=== PATIENT | female | born 1955 | race Caucasian/White ===

== ENCOUNTER 2016-06-10 15:17 | Inpatient (IN) | payer OTHER ==
[~2016-06-10] VITALS: Ht 165.1 cm; Wt 85.1 kg
[2016-06-10] MEDS ORDERED: ASPIRIN 81 MG CHEW TABLET PO ONE (15:30)
[2016-06-10] MEDS ORDERED: PREM0.9T PO (15:32)
[2016-06-10] MEDS ORDERED: PROG100C PO (15:32)
[2016-06-10 15:57] LABS: BASO # 0.1 K/mm3 (0.0-0.2); BASO % 0.9 % (0.0-1.0); EOS # 0.2 K/mm3 (0.0-0.50); EOS % 2.8 % (0.0-3.0); LARGE UNSTAINED CELL # 0.1 K/mm3 (0.0-0.4); LARGE UNSTAINED CELL % 1.8 % (0.0-4.0); LYMPH # 1.7 K/mm3 (1.5-4.5); LYMPH % 19.5 % (24.0-44.0); MEAN CORPUSCULAR HEMOGLOBIN 31.8 pg (27.0-33.0); MEAN CORPUSCULAR HGB CONC 34.5 g/dl (32.0-36.5); MEAN CORPUSCULAR VOLUME 92.1 fl (80.0-96.0); MONO # 0.4 K/mm3 (0.0-0.8); MONO % 4.6 % (0.0-5.0); NEUTROPHILS # 5.5 K/mm3 (1.8-7.7); NEUTROPHILS % 70.4 % (36.0-66.0); PLATELET COUNT, AUTOMATED 283 k/mm3 (150-450); RED CELL DISTRIBUTION WIDTH 12.7 % (11.5-14.5); WHITE BLOOD COUNT 7.8 K/mm3 (4.0-10.0)
[2016-06-10 16:20] LABS: ALBUMIN 3.6 GM/DL (3.2-5.2); ALBUMIN/GLOBULIN RATIO 1.03 (1.00-1.93); BILIRUBIN,DIRECT 0.1 MG/DL (0.0-0.2); BILIRUBIN,TOTAL 0.5 MG/DL (0.2-1.0); CALCIUM LEVEL 8.2 MG/DL (8.5-10.1); CREATININE FOR GFR 1.31 MG/DL (0.55-1.02); GLOMERULAR FILTRATION RATE 44.2 (>51); POTASSIUM SERUM 3.4 MEQ/L (3.5-5.1); TOTAL PROTEIN 7.1 GM/DL (6.4-8.2)
[2016-06-10] MEDS ORDERED: HEPARIN DRIP 25,000 UNITS in APPROPRIATE DILUENT 1 EA IV SCH (20:43)
[2016-06-10] MEDS ORDERED: HEPARIN SOD (PORCINE) 5000 UNITS/ML VIAL IV PRN (20:45)
[2016-06-10] MEDS ORDERED: ACETAMINOPHEN TAB 650MG DOSE (2X325MG) PO PRN (20:45)
[2016-06-10] MEDS ORDERED: POTASSIUM CHLORIDE 10 MEQ SR TABLET PO ONE (20:45)
[2016-06-10] MEDS ORDERED: SIMVASTATIN 20 MG TAB PO SCH (21:00)
[2016-06-10] MEDS ORDERED: HEPARIN SOD (PORCINE) 5000 UNITS/ML VIAL IV ONE (22:00)
[2016-06-10 22:59] VITALS: BP 163/106
[2016-06-10 23:05] VITALS: BP 135/85
[2016-06-10] MEDS: METOPROLOL TART 12.5 MG PER 1/2 TAB PO SCH (23:45)
[2016-06-11] VITALS (8 sets, daily range): BP systolic 130–168; BP diastolic 75–103
--- NOTE | 2016-06-11 02:43 | HPE ---
DATE OF ADMISSION: 06/10/2016 REASON FOR ADMISSION: Chest pain, tachycardia. HISTORY OF PRESENT ILLNESS: The patient is a 61-year-old female with no past medical history, presented to the emergency room with chest pain and palpitations. The patient stated she was on her treadmill, had just completed a 30-minute workout then she started having some chest pain, described as pressure mid chest, non-radiating, associated with nausea and dizziness, but no shortness of breath or diaphoresis. The patient stated that she checked her heart rate and she found it to be elevated, so she presented to the emergency room. She received four doses of 81 mg aspirin. First set of cardiac enzymes was negative, but repeat went up to 0.3. EKG initially showed some T-wave inversions. Repeat EKG was normal. By the time I saw the patient, she did not have any chest pain, stated she had some discomfort, but not like it was. She denied any other symptoms. She stated she had no prior history of any similar events in the past. REVIEW OF SYSTEMS: 12-point review of systems was obtained all of which was negative except for those mentioned above. PAST MEDICAL HISTORY: None. PAST SURGICAL HISTORY: Status post cholecystectomy. ALLERGIES: None. HOME MEDICATIONS: Include progesterone and Premarin she has been on for 4 years. SOCIAL HISTORY: The patient denies any tobacco use, alcohol use. Lives at home with her . FAMILY HISTORY: The patient has no heart disease in her family. Father had transient ischemic attack (TIA). PHYSICAL FINDINGS: Vital signs: On admission temperature 98.3, pulse 78, respiratory rate 20. Blood pressure is 163/106, pulse oximetry 97% on room air. HEENT: Pupils equal, round, reactive to light and accommodation. Neck: Supple. No jugular venous distention (JVD). Lungs: Clear to auscultation (CTA) bilaterally. Cardiac: Regular rate and rhythm. Abdomen: Soft, nontender, nondistended. Extremities: No clubbing, cyanosis or edema. LABORATORY FINDINGS: Sodium 137, potassium 3.4, chloride 100, BUN 15, creatinine 1.3, fasting glucose 203, BUN . Troponin first set was negative, second set 0.31, BNP 20.2. WBC 7.8, hemoglobin 14, hematocrit 40.5, platelet count 283. ASSESSMENT AND PLAN: 1. Chest pain. Unknown etiology at this time. Cannot rule out heart disease. Dr. Lopez was consulted from the emergency room. He stated the patient should be monitored on telemetry. He felt the elevation in troponin was likely due to tachycardia since the patient's heart rate was in the 170s upon initial presentation and it had converted on its own back to regular rate. We will continue to monitor the patient on telemetry. Continue to cycle cardiac enzymes. The patient received aspirin in the emergency room. We will resume aspirin daily. Will start the patient on heparin drip. Will start patient on beta sohail metoprolol, as well as simvastatin. We will order a lipid panel and thyroid-stimulating hormone (TSH) level. Repeat EKG in the morning. The patient may need a further cardiac workup, consult Dr. Lopez to see the patient. Thrombolysis in myocardial infarct (AMPARO) score was calculated to be 1-2. 2. Tachycardia. Unknown cause at this time. The patient had converted to regular rate and rhythm on her own. Continue to monitor the patient on telemetry. 3. Elevated troponins. 4. Acute on chronic kidney disease. Baseline creatinine is 0.9, currently 1.3, unknown etiology. We will repeat blood work in the morning. 5. Deep venous thrombosis (DVT) prophylaxis. The patient will be started on heparin drip.
[2016-06-11 07:28] LABS: MEAN CORPUSCULAR HEMOGLOBIN 32.9 pg (27.0-33.0); MEAN CORPUSCULAR HGB CONC 35.1 g/dl (32.0-36.5); MEAN CORPUSCULAR VOLUME 93.7 fl (80.0-96.0); RED CELL DISTRIBUTION WIDTH 12.6 % (11.5-14.5); WHITE BLOOD COUNT 5.8 K/mm3 (4.0-10.0)
[2016-06-11 07:41] LABS: ALBUMIN 3.4 GM/DL (3.2-5.2); ALBUMIN/GLOBULIN RATIO 0.89 (1.00-1.93); ALKALINE PHOSPHATASE 71 U/L (45-117); ALT/SGPT 40 U/L (12-78); ANION GAP 7 MEQ/L (8-16); AST/SGOT 31 U/L (15-37); BILIRUBIN,TOTAL 0.6 MG/DL (0.2-1.0); BLOOD UREA NITROGEN 14 MG/DL (7-18); CALCIUM LEVEL 8.6 MG/DL (8.5-10.1); CARBON DIOXIDE LEVEL 26 MEQ/L (21-32); CHLORIDE LEVEL 109 MEQ/L (98-107); CHOLESTEROL LEVEL 261 MG/DL (<200); CREATININE FOR GFR 0.98 MG/DL (0.55-1.02); GLOMERULAR FILTRATION RATE > 60.0 (>51); GLUCOSE, FASTING 96 MG/DL (70-105); MAGNESIUM LEVEL 2.2 MG/DL (1.8-2.4); POTASSIUM SERUM 4.3 MEQ/L (3.5-5.1); SODIUM LEVEL 142 MEQ/L (136-145); TOTAL PROTEIN 7.2 GM/DL (6.4-8.2); TRIGLYCERIDES LEVEL 101 MG/DL (<150)
[2016-06-11] MEDS ORDERED: ENOXAPARIN 40 MG/0.4 ML SYRINGE (J1650) SC SCH (09:00)
[2016-06-11] MEDS: METOPROLOL TART 12.5 MG PER 1/2 TAB PO SCH (09:57)
[2016-06-11] MEDS: ASPIRIN 325 MG TAB PO SCH (11:07)
--- NOTE | 2016-06-11 11:23 | IPN ---
DATE: 06/11/2016 PRIMARY CARE PROVIDER: Shreya Gustafson. Zohra was seen in the progressive care unit (PCU). She was admitted after having a tachycardic episode after working out on a treadmill. She had a bump of her troponin, so she was admitted for further therapy. Dr. Lopez had been consulted over the phone. The patient is currently on a heparin drip, beta sohail, simvastatin and aspirin. She has had no recurrence of chest pain. She feels well. There have been no palpitations. She has no past history of coronary disease. PHYSICAL EXAMINATION: Blood pressure 120/64, pulse of 80 to 97, respiratory rate listed as 20, it is closer to 14, 99% oxygen saturation. General Appearance: Alert, conversant, in no distress. No jugular venous distention (JVD). Lungs: Clear. Heart: Regular without murmur. Abdomen: Soft, nontender. No masses. No peripheral edema. LABORATORY: CBC normal. Electrolytes are unremarkable. Troponin was 0.02 on admission; it bumped to 0.3, then 0.44 and now down to 0.37. LDL cholesterol is 162. TSH minimally elevated at 4.7. IMPRESSION: 1. Troponin elevation. I am hard pressed to call this a non-ST segment elevation infarction. I think it is just simple demand ischemia with a bit of troponin leak. Certainly she needs a cardiac evaluation as an outpatient. Dr. Lopez is consulted but has not seen the patient yet. I will be discussing the case with cardiology. I wonder if we could get her off the heparin drip and just continue aspirin, beta sohail and statin. I recommend substituting atorvastatin for the simvastatin based on 2013 [place] [employer]/[place] [employer] guidelines. 2. Acute renal failure. Creatinine is back to baseline. IV fluids have been discontinued.
--- NOTE | 2016-06-11 11:50 | REP ---
CHEST, ONE VIEW: HISTORY: Chest pain. COMPARISON: 09/22/2015. FINDINGS: The technique utilized in obtaining the radiograph has magnified the cardiac silhouette and accentuated the interstitial markings. The superior mediastinal structures are midline. The cardiac silhouette is unremarkable in size, shape, and position. The diaphragmatic surfaces of the lungs are regular, and the costophrenic angles are clear. The pulmonary lobo are clear. The imaged osseous structures are intact. IMPRESSION: There is no acute cardiopulmonary disease. Signed by Raj Chavez DO 06/11/2016 12:10 P
[2016-06-11] MEDS: CLOPIDOGREL 75 MG TAB PO SCH (14:02)
--- NOTE | 2016-06-11 14:19 | CR ---
DATE OF CONSULTATION: 06/11/2016 REFERRING PHYSICIAN: Dr. Sen INDICATION: Supraventricular tachycardia (SVT), troponin elevation. HISTORY OF PRESENT ILLNESS: Mrs. Leonard is previously unknown to me. She is a very pleasant 61-year-old female who reports no prior history of cardiovascular problems. She presented to [facility] Emergency Room (ER) yesterday by private vehicle after she developed a sensation of dizzy feeling, discomfort in her chest, jaw and head and a sensation of tachycardia. It started when she was working out in a gym. She just completed a 30-minute walk and was in her cool down 5-minute period walking at a speed of 1.7 miles an hour when she suddenly developed a dizzy feeling, also pressure-like sensation in the upper part of her chest radiating to her neck, jaw and also to her head. She stopped exercising, sat down but after the symptoms did not subside after a few minutes, she called her and initially thought that she would drive herself home alone but then when the symptoms would not go away, he came and drove her actually to the emergency room. On presentation to ER, she was found to be narrow complex tachycardia with ventricular rate around 180 beats per minute. It stopped after she bared down. She tells me that even though the arrhythmia has stopped, her sensation of discomfort persisted for at least additional 20 or 30 minutes, but it was markedly diminished when the heart rate slowed down. She estimates that the total duration of fast heart rate was approximately an hour and a half. She never had any similar sensations before. She does admit that she has a longstanding history of chest discomfort when under stress. It has been present for at least a couple decades, but there was no change in the pattern. She normally is quite active. 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 PAST MEDICAL HISTORY: Essentially unremarkable. SURGICAL HISTORY: Cholecystectomy. ALLERGIES: No allergies. HOME MEDICATIONS: Positive only for hormone replacement with progesterone, Premarin for approximately 4 or 5 years. SOCIAL HISTORY: She never smoked. She drinks about one or two alcoholic beverages a day. 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 She lives with her . FAMILY HISTORY: Father apparently of stroke and had numerous vascular problems, but he was a smoker. There are no first-degree relatives who had heart disease. REVIEW OF SYSTEMS: She denies any recent unusual events. No fever, chills, nausea, vomiting. There is no history of stroke. There is no history of syncope or near syncope. No history of palpitations. No abdominal pain. No diarrhea. No peripheral edema. She has had recurrent menopausal symptoms for which she eventually started taking hormone replacement therapy. She was not aware that her cholesterol is high. PHYSICAL EXAMINATION: Mrs. Leonard is a very pleasant lady who appears younger than her calendar age. Blood pressure - the last one was 120/64, heart rate in 80s and 90s. She is afebrile. Saturation 99% on 2 liters of oxygen by nasal cannula. Weight was documented at 84 kg. She is alert and oriented and appropriate. No distress. Jugular venous pressure (JVP) is not elevated. No carotid bruit. Lungs are clear to auscultation with good air movement. Heart Exam: Regular rhythm. No gallop, rub or murmur. Abdomen: Soft. No tenderness. No rebound tenderness. Extremities are free of edema. Peripheral pulses are of good quality on both sides. Neurologically, she is intact. There are no skin lesions. LABORATORY: Her CBC is normal. Basic metabolic panel is normal as well. She had a total of four sets of cardiac enzymes. The initial troponin was negative but second one was 0.3, then 0.44 and the third was 0.37. CK, CK-MB remain negative. TSH 4.7. Her lipid panel, total cholesterol 261, LDL 162, HDL 78 and triglycerides 101. There are several ECGs on the chart. The initial one reveals narrow complex tachycardia with heart rate 180 beats per minute. There are no discernible P-wave, and there are fairly diffuse ST-segment depressions. The ECGs after resolution of arrhythmia reveals sinus rhythm and resolution of ST-T abnormalities. Chest x-ray Is normal. ASSESSMENT AND PLAN: Mrs. 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 There was associated chest discomfort during the arrhythmia, and there was troponin elevation that does not fulfill criteria for non-ST elevation myocardial infarction (NSTEMI). She does have some risk factors for coronary artery disease, most importantly she has very high cholesterol. She is mildly obese (she reports gaining about 40 pounds over the last few years). Nevertheless, I believe that the troponin elevation is mostly due to her tachycardia rather than representing thrombotic event. So far, she has been treated with aspirin, heparin, beta sohail and statin. I agree with using atorvastatin high dose. I also agree with the use of beta-sohail, and I am going to increase the dose of metoprolol to Toprol XL 50 mg at night, and I am going to give her also Plavix and discontinue the heparin this evening. I do foresee that I will discharge her on combination aspirin and Plavix together with beta sohail and statin. I do plan to perform an exercise stress test later this week. Provided she does well, I would continue purely medical management. Provided there are abnormalities, obviously will treat them accordingly. I had a long discussion with the patient and her about supraventricular tachycardia, about hormone replacement therapy and about coronary syndromes. I would recommend that she either discontinues hormone replacement therapy or takes a dose that is as low as possible. She will talk about this with her primary care provider. Finally, I told her that if she feels well, she can go to work, but I would not do any strenuous physical activity until the stress test is performed.
[2016-06-11] MEDS ORDERED: METOPROLOL SUCC (TopROL XL) 50MG **XL** TAB PO SCH (21:00)
[2016-06-11] MEDS ORDERED: ATORVASTATIN 20 MG TAB PO SCH (21:00)
[2016-06-12 04:00] VITALS: BP 128/73
[2016-06-12 05:51] LABS: MEAN CORPUSCULAR HGB CONC 33.8 g/dl (32.0-36.5); MEAN CORPUSCULAR VOLUME 94.6 fl (80.0-96.0); RED CELL DISTRIBUTION WIDTH 12.6 % (11.5-14.5); WHITE BLOOD COUNT 5.7 K/mm3 (4.0-10.0)
[2016-06-12 06:29] LABS: ALBUMIN/GLOBULIN RATIO 0.86 (1.00-1.93); ALKALINE PHOSPHATASE 63 U/L (45-117); ALT/SGPT 35 U/L (12-78); ANION GAP 7 MEQ/L (8-16); AST/SGOT 20 U/L (15-37); BILIRUBIN,TOTAL 0.3 MG/DL (0.2-1.0); BLOOD UREA NITROGEN 17 MG/DL (7-18); CALCIUM LEVEL 8.3 MG/DL (8.5-10.1); CARBON DIOXIDE LEVEL 26 MEQ/L (21-32); CHLORIDE LEVEL 108 MEQ/L (98-107); CREATININE FOR GFR 0.96 MG/DL (0.55-1.02); GLOMERULAR FILTRATION RATE > 60.0 (>51); GLUCOSE, FASTING 98 MG/DL (70-105); POTASSIUM SERUM 4.1 MEQ/L (3.5-5.1); SODIUM LEVEL 141 MEQ/L (136-145); TOTAL PROTEIN 6.5 GM/DL (6.4-8.2)
[2016-06-12 08:00] VITALS: BP 165/98
[2016-06-12] MEDS: CLOPIDOGREL 75 MG TAB PO SCH (08:14)
[2016-06-12] MEDS: ASPIRIN 325 MG TAB PO SCH (08:14)
[2016-06-12 08:20] VITALS: BP 132/82
--- NOTE | 2016-06-12 08:40 | ECGEPIP ---
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
[2016-06-12] MEDS ORDERED: METO-207 PO (09:54)
[2016-06-12] MEDS ORDERED: CLOP75TA2 PO (09:54)
[2016-06-12] MEDS ORDERED: ASPI325T PO (09:54)
[2016-06-12] MEDS ORDERED: ATOR1TAB21 PO (09:54)
--- NOTE | 2016-06-12 12:47 | ECGEPIP ---
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
--- NOTE | 2016-06-12 13:01 | IPN ---
DATE: 06/12/2016 Mrs. Leonard have a good night. She did not have any chest pain other than very brief sensation of fullness in her chest that would last a few seconds and would occur without any specific trigger. She was able to ambulate on her room and had no trouble doing so. Vital signs: Blood pressure 132/85. She is afebrile. Saturation 95% on room air. 85.1 kg is her weight. She is alert and oriented and appropriate. Jugular venous pulse (JVP) is not up. Lungs are clear to auscultation. Heart exam: Regular rhythm without gallop, rub or murmur. Extremities are free of edema. Neurologically, she is intact. Laboratory ling, her CBC is normal. Basic metabolic panel is normal. Troponin is down to 0.13. Albumin is 3.0 ASSESSMENT AND PLAN: Mrs. Leonard is a 61-year-old female who came with supraventricular tachycardia (SVT) with rapid ventricular response (RVR) with rapid ventricular rate in 180s. It was terminated by a vagal maneuver. Subsequently ruled in for myocardial infarction and had ischemic ECG abnormalities on EKG during the initial presentation. The duration of arrhythmia was approximately 90 minutes. She had small troponin elevation, which I suspect is most likely due to tachycardia. But she does have hypercholesterolemia and consequently, I will bring her for outpatient stress test. If she can ambulate on telemetry without difficulty and without recurrence of chest discomfort, I do not have any objection that she gets discharged home later today on combination of aspirin, Plavix, metoprolol and atorvastatin. I plan outpatient stress test later this week. LEORA
--- NOTE | 2016-06-12 13:46 | DSES ---
DATE OF ADMISSION: 06/10/2016 DATE OF DISCHARGE: 06/12/2016 PRINCIPAL DIAGNOSIS: Supraventricular tachycardia (SVT) with mild elevation of troponin (does not reach criteria for non-ST segment elevation myocardial infarction). SECONDARY DIAGNOSES: Hyperlipidemia. History of estrogen replacement therapy (discontinued). Acute renal failure, resolved with IV fluids. PRIMARY CARE PROVIDER: Kari Arzola HISTORY: Zohra Leonard is admitted after developing SVT following a workout at the gym. She was in the emergency room with SVT, narrow complex tachycardia, rate of 180, resolved after Valsalva maneuver. Lab work showed a mildly elevated troponin. She was admitted for further therapy. HOSPITAL COURSE: The patient was admitted to a progressive care unit (PCU) bed. She had minor elevation of troponin; it was normal on admission 0.3. Check 3 hours later, it peaked at 0.44. Suspect a minor troponin leak related to tachycardia. Lab work showed an LDL cholesterol of 162. She had no arrhythmias during her hospitalization, did not revert back to any SVT. She was managed with metoprolol, aspirin, Plavix and atorvastatin. She was on a heparin drip initially, but we stopped that in favor of the antiplatelet therapy. Day of discharge, she is resting comfortably. No recurrence of chest pain or palpitations. Blood pressure is 132/82, pulse of 83, respiratory rate 18, 95% oxygen saturation. She is alert, conversant, in no distress. Lungs: Clear. Heart: Regular rhythm. Abdomen: Soft, nontender. No peripheral edema. An echocardiogram has been ordered. It looks as though it has been completed, but we do not have a report yet. This can be followed up as an outpatient with Dr. Lopez. DISPOSITION: The patient is discharged home improved, in stable condition. Activity as tolerated. No gym workouts until cleared by cardiology. She can do light workouts, she can walk and she can golf. She is on a DASH diet. Medications will be atorvastatin 40 mg nightly, aspirin 325 mg daily, Plavix 75 mg daily, Toprol XL 50 mg nightly. Told her to stop the estrogen replacement therapy that she was on and probably should not resume this in the face of the cardiac event. She was taking Premarin 0.9 mg daily with progesterone 100 mg daily, and these should both be discontinued. She will followup with Kari Arzola within a week, Dr. Lopez per his office. Copy To: Kari Arzola
--- NOTE | 2016-06-12 14:26 | ECHO ---
DATE OF PROCEDURE: 06/12/2016 REFERRING PHYSICIAN: Dr. Sen The study was performed on 06/12/2016 for indication of troponin elevation, chest pain, supraventricular tachycardia (SVT). The patient measures 65 inches and weighs 185 pounds. DIMENSIONS: IVS: 1.0 LV: 4.6 LVPW: 1.1 LA: 4.1 Aorta: 3.3 Ascending aorta: 3.1 LV systolic: 3.0 RV: 3.1 FINDINGS: The study is of good technical quality. Left ventricle is normal size and systolic function. Estimated left ventricular ejection fraction (LVEF) is 60-65%. Right ventricle is normal size and systolic function. Both atria appear normal. All four cardiac valves were well seen and appear normal. No pericardial effusion is noted. Inferior vena cava is normal size. Aortic root, aortic arch and abdominal aorta appear normal. Doppler interrogation reveals no aortic valve disease, trace mitral insufficiency, mild tricuspid insufficiency and no pulmonic insufficiency. Calculated pulmonary artery pressure is within normal limits. Mitral inflow pattern and tissue Doppler imaging of mitral annulus reveal grade 1 diastolic dysfunction. CONCLUSIONS: 1. Study is of good technical quality. 2. Normal left ventricular (LV) size, systolic function. Grade 1 diastolic dysfunction. 3. No significant valvular disease. 4. Normal Central venous pressure (CVP) and likely normal pulmonary artery pressure. COMMENTS: Subacute bacterial endocarditis (SBE) prophylaxis is not recommended.
--- NOTE | 2016-06-12 14:36 | ECGEPIP ---
Stationary ECG Study [facility] Test Date: 2016-06-10 Pat Name: REBEKAH MCCLENDON Department: Room: - Gender: F Rn Chemical Dependency: oumar : 1955 Requested By: MARGRET Franz Order Number: [id number] Reading MD: Marci Gutierrez Measurements Intervals [place] Rate: 96 P: 60 VA: 151 QRS: 18 QRSD: 96 T: 17 QT: 373 QTc: 471 Interpretive Statements SINUS RHYTHM PRIOR SAME DAY SVT Electronically Signed On 06-12-2016 14:36:42 EDT by Marci Gutierrez
--- NOTE | 2016-06-12 14:36 | ECGEPIP ---
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
--- NOTE | 2016-06-12 14:39 | ECGEPIP ---
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
== END 2016-06-12 12:59 | disposition home or self-care (01) | DRG 201 ==
LOC: M ED 16:14 → M ED INP 20:53 → M PCU 22:41
PROVIDERS: ADMIT Internal Medicine; ATTEND Hospitalist
DX: I47.1 Supraventricular tachycardia (principal); N17.9 Acute kidney failure, unspecified; I24.8 Other forms of acute ischemic heart disease; R79.89 Other specified abnormal findings of blood chemistry; E78.00 Pure hypercholesterolemia, unspecified; N18.9 Chronic kidney disease, unspecified; E78.5 Hyperlipidemia, unspecified; Z92.23 Personal history of estrogen therapy; Z90.49 Acquired absence of other specified parts of digestive tract; Z82.3 Family history of stroke; Z81.2 Family history of tobacco abuse and dependence

== ENCOUNTER → 2016-06-14 | Outpatient (CLI) | payer OTHER ==
[~2016-06-14] MED LIST: ASPI325T PO; ATOR1TAB21 PO; CLOP75TA2 PO; METO-207 PO; PREM0.9T PO; PROG100C PO
--- NOTE | 2016-06-14 10:57 | REPMRS ---
Patient History The patient states she had a clinical breast exam in 06/21 Patient is postmenopausal. No known family history of cancer. Took hormonal contraceptives for 12 years. Took unspecified hormones for 2 years. Digital Woman Screen Mammo: June 14, 2016 - Exam #: [id number] Bilateral CC and MLO view(s) were taken. Technologist: Alayna Hoffmann, Technologist Prior study comparison: December 20, 2013, bilateral bilat screen digital mammo, performed at [facility] ([facility]). May 03, 2012, bilateral bilat screen digital mammo, performed at [facility] ([facility]). FINDINGS: There are scattered fibroglandular densities. There has been no change in the appearance of the mammogram from the prior studies. There is a mild amount of residual fibroglandular tissue which is fairly symmetric. There is no interval development of dominant mass, architectural distortion, or clustered microcalcification suggestive of malignancy. ASSESSMENT: BI-RADS/ACR category 1 mammogram. Negative. Recommendation Routine screening mammogram in 1 year (for women over age 40). This mammogram was interpreted with the aid of an FDA-approved computer-aided dectection system. Electronically Signed By: Abran Harris MD 06/14/16 1337
== END ==
LOC: M WHC 08:02
PROVIDERS: ATTEND Nurse Practitioner Adult Health
DX: Z12.31 Encounter for screening mammogram for malignant neoplasm of breast (principal)

== ENCOUNTER 2018-06-13 11:43 | Emergency (ER) | payer OTHER ==
[~2018-06-13] VITALS: Ht 162.6 cm; Wt 83.6 kg
[~2018-06-13 11:43] MED LIST changes: +ASPI-1 PO; -ASPI325T PO; -METO-207 PO; +METO1TAB7 PO
[2018-06-13] MEDS ORDERED: ADENOSINE 6MG/2ML INJECTION (J0153) IV STA (11:59)
[2018-06-13] MEDS ORDERED: ADENOSINE 6MG/2ML INJECTION (J0153) As Ordered ONE (11:59)
[2018-06-13 12:09] LABS: BASO # 0.1 10^3/uL (0.0-0.2); BASO % 1.1 % (0.0-1.0); EOS # 0.3 10^3/uL (0.0-0.50); EOS % 2.7 % (0.0-3.0); HEMATOCRIT 46.4 % (36.0-47.0); LYMPH # 3.1 10^3/uL (1.5-4.5); MEAN CORPUSCULAR HEMOGLOBIN 31.6 pg (27.0-33.0); MEAN CORPUSCULAR HGB CONC 34.5 g/dl (32.0-36.5); MEAN CORPUSCULAR VOLUME 91.5 fl (80.0-96.0); MONO # 0.7 10^3/uL (0.0-0.8); MONO % 7.1 % (0.0-5.0); NEUTROPHILS # 5.6 10^3/uL (1.8-7.7); NEUTROPHILS % 56.8 % (36.0-66.0); PLATELET COUNT, AUTOMATED 368 10^3/uL (150-450); RED BLOOD COUNT 5.07 10^6/uL (4.00-5.40); WHITE BLOOD COUNT 9.8 10^3/uL (4.0-10.0)
[2018-06-13 12:23] LABS: INR 0.92; PROTHROMBIN TIME 12.5 SECONDS (12.1-14.4)
[2018-06-13 12:24] LABS: PARTIAL THROMBOPLASTIN TIME 29.8 SECONDS (25.4-37.6)
[2018-06-13 12:45] LABS: ALBUMIN 4.5 GM/DL (3.2-5.2); ALT/SGPT 42 U/L (12-78); BILIRUBIN,DIRECT 0.2 MG/DL (0.0-0.2); BILIRUBIN,TOTAL 0.7 MG/DL (0.2-1.0); BLOOD UREA NITROGEN 22 MG/DL (7-18); CARBON DIOXIDE LEVEL 25 MEQ/L (21-32); CHLORIDE LEVEL 104 MEQ/L (98-107); CK-MB VALUE MASS < 1.0 NG/ML (<3.6); CPK CREATINE PHOSPHOKINASE 100 U/L (26-192); CREATININE FOR GFR 1.16 MG/DL (0.55-1.30); FREE T4 1.12 NG/DL (0.76-1.46); GLOMERULAR FILTRATION RATE 50.6 (>45); GLUCOSE, FASTING 148 MG/DL (70-100); PHOSPHORUS LEVEL 4.2 MG/DL (2.5-4.9); POTASSIUM SERUM 3.5 MEQ/L (3.5-5.1); SODIUM LEVEL 138 MEQ/L (136-145); TOTAL PROTEIN 8.7 GM/DL (6.4-8.2); TROPONIN I < 0.02 NG/ML (< 0.10)
--- NOTE | 2018-06-13 12:55 | REP ---
CHEST, SINGLE VIEW: There is no evidence of acute infiltrate. No pleural effusion is seen. The heart is normal in size. The mediastinal silhouette is unremarkable. The visualized osseous structures are intact. IMPRESSION: No acute pulmonary disease. Electronically Signed by Abran Harris MD 06/13/2018 04:07 P
[2018-06-13 18:18] LABS: MB/CK RELATIVE INDEX 0.88 (< OR =4); TROPONIN I 0.07 NG/ML (< 0.10)
[2018-06-13 18:57] VITALS: BP 160/95
--- NOTE | 2018-06-13 20:32 | ECGEPIP ---
Stationary ECG Study [facility] - ED Test Date: 2018-06-13 Pat Name: REBEKAH MCCLENDON Department: Room: - Gender: F Benefits Counselor: : 1955 Requested By: AMITA Mckeon Order Number: [id number] Reading MD: Marci Gutierrez Measurements Intervals [place] Rate: 197 P: [place]: 0 QRS: -5 QRSD: 106 T: 16 QT: 221 QTc: 400 Interpretive Statements SUPRAVENTRICULAR TACHYCARDIA NONSPECIFIC ST & T-WAVE ABNORMALITY ABNORMAL RHYTHM ECG 06/22/16 SINUS RHYTHM Electronically Signed On 06-13-2018 20:32:15 EDT by Marci Gutierrez
--- NOTE | 2018-06-13 20:33 | ECGEPIP ---
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
--- NOTE | 2018-06-13 20:40 | ECGEPIP ---
Stationary ECG Study [facility] - ED Test Date: 2018-06-13 Pat Name: REBEKAH MCCLENDON Department: Room: - Gender: F Stone Layer: BRYAN : 1955 Requested By: AMITA Mckeon Order Number: [id number] Reading MD: Marci Gutierrez Measurements Intervals [place] Rate: 89 P: 35 PA: 147 QRS: 7 QRSD: 90 T: 11 QT: 330 QTc: 402 Interpretive Statements SINUS RHYTHM NSTTW ABNORMALITY DECREASED RATE 06/13/18 12:11 Electronically Signed On 06-13-2018 20:40:21 EDT by Marci Gutierrez
== END 2018-06-13 18:58 | disposition home or self-care (01) ==
LOC: M ED 11:43
DX: I47.1 Supraventricular tachycardia (principal); F41.9 Anxiety disorder, unspecified; Z79.82 Long term (current) use of aspirin; Z79.02 Long term (current) use of antithrombotics/antiplatelets
CPT/HCPCS: 71045; 80048; 80076; 82550; 82553; 83735; 84100; 84439; 84443; 84484; 85025; 85610; 85730; 93005; 93041; 94760; 96374; 99285; J0153

== ENCOUNTER → 2019-02-11 | Outpatient (CLI) | payer OTHER ==
[~2019-02-11] MED LIST changes: -PROG100C PO; +PROG1CAP8 PO
--- NOTE | 2019-02-11 09:18 | REPMRS ---
Patient History The patient states she had a clinical breast exam in May 2018. Patient is postmenopausal. No known family history of cancer. Took hormonal contraceptives for 12 years. Taking progesterone for 5 years. Taking unspecified hormones for 5 years. Digital Woman Screen Mammo: February 11, 2019 - Exam #: [id number] Bilateral CC and MLO view(s) were taken. Technologist: Tanya Pitts, Technologist Prior study comparison: June 14, 2016, digital woman screen mammo performed at [facility] and [facility]. December 20, 2013, bilateral bilat screen digital mammo, performed at [facility] ([facility]). May 03, 2012, bilateral bilat screen digital mammo, performed at [facility] ([facility]). FINDINGS: There are scattered fibroglandular densities. There has been no change in the appearance of the mammogram from the prior studies. There is a mild amount of scattered fibroglandular density which is fairly symmetric. There is no interval development of dominant mass, architectural distortion, or grouped microcalcification suggestive of malignancy. 3-D tomosynthesis shows no additional findings. Assessment: BI-RADS/ACR category 1 mammogram. Negative Mammogram. Recommendation Routine screening mammogram of both breasts in 1 year (for women over age 40). This patient's Lifetime Breast Cancer Risk is estimated at 6.9 %. This mammogram was interpreted with the aid of an FDA-approved computer-aided dectection system. Electronically Signed By: Waylon Silverio MD 02/11/19 0918
== END ==
LOC: M WHC 08:32
PROVIDERS: ATTEND Nurse Practitioner Adult Health
DX: Z12.31 Encounter for screening mammogram for malignant neoplasm of breast (principal)

== ENCOUNTER → 2020-02-13 | Outpatient (CLI) | payer OTHER ==
--- NOTE | 2020-02-13 14:35 | REPMRS ---
Patient History The patient states she had a clinical breast exam in January 2020.No known family history of cancer. Took hormonal contraceptives for 12 years. Taking progesterone for 5 years. Taking unspecified hormones for 5 years. 3D TOMOSYNTHESIS WAS PERFORMED. The Pham Leon lifetime risk for breast cancer is 6.6%. Volpara breast density b. Digital Woman Screen Mammo: February 13, 2020 - Exam #: [id number] Bilateral CC and MLO view(s) were taken. Technologist: Deepika Decker, Technologist Prior study comparison: February 11, 2019, bilateral digital woman screen mammo performed at [facility]. June 14, 2016, digital woman screen mammo performed at [facility]. FINDINGS: There are scattered fibroglandular densities. There has been no change in the appearance of the mammogram from the prior studies. There is a mild amount of residual fibroglandular tissue which is fairly symmetric. There is no interval development of dominant mass, architectural distortion, or clustered microcalcification suggestive of malignancy. Assessment: BI-RADS/ACR category 1 mammogram. Negative Mammogram. Recommendation Routine screening mammogram in 1 year (for women over age 40). This mammogram was interpreted with the aid of an FDA-approved computer-aided dectection system. Electronically Signed By: Abran Harris MD 02/13/20 1774
== END ==
LOC: M WHC 13:51
PROVIDERS: ATTEND Nurse Practitioner Adult Health
DX: Z12.31 Encounter for screening mammogram for malignant neoplasm of breast (principal)

== ENCOUNTER → 2022-11-14 | Outpatient (CLI) | payer OTHER | LOC: M WHC 14:44 | PROVIDERS: ATTEND Nurse Practitioner Adult Health | DX: Z12.31 Encounter for screening mammogram for malignant neoplasm of breast (principal) ==

== ENCOUNTER → 2022-11-29 | Outpatient (CLI) | payer OTHER | LOC: M WHC 12:56 | PROVIDERS: ATTEND Nurse Practitioner Adult Health | DX: R92.2 Inconclusive mammogram (principal) | CPT/HCPCS: 76642; 77065; G0279 ==

== ENCOUNTER → 2023-03-03 | Outpatient (REF) | payer OTHER | LOC: M LAB REF 16:26 | PROVIDERS: ATTEND Internal Medicine | DX: N95.0 Postmenopausal bleeding (principal) ==

== ENCOUNTER → 2023-03-08 | Outpatient (CLI) | payer OTHER | LOC: M RAD 15:39 | PROVIDERS: ATTEND Internal Medicine | DX: N95.0 Postmenopausal bleeding (principal) ==

== ENCOUNTER → 2023-04-10 | Outpatient (REF) | payer OTHER | LOC: M SFHCWAGY 07:37 | PROVIDERS: ATTEND Specialist | DX: N95.0 Postmenopausal bleeding (principal) ==

== ENCOUNTER → 2023-06-01 | Outpatient (CLI) | payer OTHER | LOC: M WHC 10:27 | PROVIDERS: ATTEND Nurse Practitioner Adult Health | DX: Z12.31 Encounter for screening mammogram for malignant neoplasm of breast (principal); M81.0 Age-related osteoporosis without current pathological fracture ==

== ENCOUNTER → 2023-12-04 | Outpatient (CLI) | payer OTHER | LOC: M WHC 15:30 | PROVIDERS: ATTEND Nurse Practitioner Adult Health | DX: Z12.31 Encounter for screening mammogram for malignant neoplasm of breast (principal) ==

== ENCOUNTER → 2024-08-16 | Outpatient (CLI) | payer OTHER | LOC: M PLAIMG 16:01 | PROVIDERS: ATTEND Nurse Practitioner Adult Health | DX: M17.11 Unilateral primary osteoarthritis, right knee (principal) ==

== ENCOUNTER → 2024-10-03 | Outpatient (CLI) | payer OTHER | LOC: M WHC 12:59 | PROVIDERS: ATTEND Internal Medicine | DX: N95.0 Postmenopausal bleeding (principal); D25.9 Leiomyoma of uterus, unspecified; R93.89 Abnormal findings on diagnostic imaging of other specified body structures ==

== ENCOUNTER → 2024-10-23 | Outpatient (REF) | payer OTHER | LOC: M PLALAB 15:31 | PROVIDERS: ATTEND Specialist | DX: N95.0 Postmenopausal bleeding (principal) ==